=== PATIENT | male | born 1955 | race Caucasian/White ===

== ENCOUNTER 2017-04-16 05:41 | Inpatient (IN) | payer OTHER ==
[2017-04-15 09:55] VITALS: Ht 175.3 cm; Wt 96.0 kg
[2017-04-16] VITALS (24 sets, daily range): BP systolic 90–136; BP diastolic 61–90; PULSE 60–78; RESP 12–20
[~2017-04-16] VITALS: Ht 175.3 cm; Wt 96.0 kg
[2017-04-16] MEDS ORDERED: VANCOMYCIN 1 GM in NS 250 ML IVPB ONE (06:21)
[2017-04-16] MEDS ORDERED: LACTATED RINGER'S 1,000 ML IV* SCH ×2 (06:21)
--- NOTE | 2017-04-16 06:41 | HPN ---
Date/Time of Note Date/Time of Note DATE: 04/16/17 TIME: 06:41 Interval H&P Admission Note Pt. seen H&P reviewed: No system changes SHER JUSTICE MD Apr 16, 2017 06:41
[2017-04-16] MEDS ORDERED: FENTAnyl 50 MCG/ML VIAL ONE (06:43)
[2017-04-16] MEDS ORDERED: ONDANSETRON 4 MG INJ ONE (06:43)
[2017-04-16] MEDS ORDERED: SUCCINYLCHOLINE CHLORIDE 100 MG/5 ML SYG IV ONE (06:43)
[2017-04-16] MEDS ORDERED: ROCURONIUM 50 MG INJ ONE (06:43)
[2017-04-16] MEDS ORDERED: PROPOFOL 20 ML ONE (06:43)
[2017-04-16] MEDS ORDERED: GELATIN SIZE 100 SPONGE ONE (06:44)
[2017-04-16] MEDS ORDERED: BUPIVACAINE 0.25% (MPF) 30 ML INJ ONE (06:45)
[2017-04-16] MEDS ORDERED: THROMBIN 5000 UNIT VIAL ONE (06:45)
[2017-04-16] MEDS ORDERED: BENA20TA48 PO (06:53)
[2017-04-16] MEDS ORDERED: CRES10 PO (06:58)
[2017-04-16] MEDS ORDERED: LEVO125T75 PO (06:58)
[2017-04-16] MEDS ORDERED: IBUP-1542 PO (06:58)
[2017-04-16] MEDS ORDERED: LABETALOL HCL 20MG INJ IV PRN (07:00)
[2017-04-16] MEDS ORDERED: ONDANSETRON 4 MG INJ IV PRN ×2 (07:00→12:00)
[2017-04-16] MEDS ORDERED: MEPERIDINE 25 MG INJ IV PRN (07:00)
[2017-04-16] MEDS ORDERED: HYDROmorphONE (0.2 MG/ML) 10ML SYG IV PRN ×2 (07:00)
[2017-04-16] MEDS ORDERED: FENTAnyl 50 MCG/ML VIAL IV PRN ×2 (07:00)
[2017-04-16] MEDS ORDERED: hydrALAzine 20 MG INJ IV PRN (07:00)
[2017-04-16] MEDS ORDERED: MINERAL OIL LIGHT 10 ML VIAL ONE (08:23)
[2017-04-16] MEDS ORDERED: POLYMYXIN/BACITRACIN 1L IRRIG ONE (08:23)
--- NOTE | 2017-04-16 09:18 | RADRPT ---
PROCEDURE: XR Lumbar Spine one view. CLINICAL INDICATION: Low back pain. Intraoperative. TECHNIQUE: Prone portable cross-table lateral. COMPARISON: No prior studies are available for comparison. FINDINGS: There is transitional anatomy. For the purposes of this report, the last apparent true disc level is considered to be L5-S1. Based on this, the posterior needle markers are present at L2-3 and L4-5. IMPRESSION: 1. Intraoperative imaging as described above. RPTAT: QQ .Calin Jones MD, Date Time Electronically viewed and signed by .Calin Jones MD, on 04/16/2017 09:18 .R/
--- NOTE | 2017-04-16 09:19 | RADRPT ---
PROCEDURE: XR Lumbar Spine one view. CLINICAL INDICATION: Low back pain. Intraoperative. TECHNIQUE: Prone portable cross-table lateral. COMPARISON: Prior study done earlier the same day. FINDINGS: For the purposes of this report, the last apparent true disc level is considered to be L5-S1. Based on this, the posterior posterior surgical instruments are present overlying the L3, L4, and L5 spin ous processes. IMPRESSION: 1. Intraoperative imaging as described above. Call report: A call report of the findings was made to Dr. Hess on 04/16/2017 at 0805 hours. RPTAT: QQ .Calin Jones MD, MD Date Time Electronically viewed and signed by .Calin Jones MD, MD on 04/16/2017 09:19 .R/
[2017-04-16] MEDS: HYDROmorphONE (0.2 MG/ML) 10ML SYG IV PRN ×2 (11:36→11:46)
--- NOTE | 2017-04-16 11:42 | SIPON ---
Date/Time of Note Date/Time of Note DATE: 04/16/17 TIME: 11:40 Operative Report Preoperative Diagnosis Lumbar spinal stenosis at L2-L3-L4 and L5 Postoperative Diagnosis Same Operation/Procedure Performed Central decompressive laminectomy at L2-L3-L4 and L5 Medial facetectomy and foraminotomy L2-3 L3-4 L4-5 and L5-S1 bilaterally Cosmetic wound closure (14 cm) Lateral localizing lumbar radiographs (2) Intraoperative nerve monitoring (3 hours) Surgeon see signature line assisted living associate Nia CROWDERA Anesthesia: general Estimated blood loss: 250 - 300 ml's Transfusion Required none Specimen Spinous process of L2-L3-L4 and L5 Grafts/Implants none Complications none SHER JUSTICE MD Apr 16, 2017 11:41
[2017-04-16] MEDS ORDERED: HYDROmorphONE 0.2 MG/ML PCA ONE (11:44)
[2017-04-16] MEDS: HYDROmorphONE 0.2 MG/ML PCA IV SCH (11:59)
[2017-04-16] MEDS ORDERED: NACL 0.9% 3 ML SYG IV SCH (12:00)
[2017-04-16] MEDS ORDERED: DIPHENHYDRAMINE 50 MG CAP PO PRN (12:00)
[2017-04-16] MEDS ORDERED: TRIMETHOBENZAMIDE 100 MG/ML VIAL IM PRN (12:00)
[2017-04-16] MEDS ORDERED: AL HYDROX/MG HYDROX/SIMETH 30 ML CUP PO PRN (12:00)
[2017-04-16] MEDS ORDERED: NALOXONE (0.4 MG/ML) INJ IV PRN (12:00)
[2017-04-16] MEDS ORDERED: DIAZEPAM 5 MG/ML SYG IM PRN (12:00)
[2017-04-16] MEDS ORDERED: ACETAMINOPHEN 325 MG TAB PO PRN (12:00)
[2017-04-16] MEDS ORDERED: PROCHLORPERAZINE 10 MG TAB PO PRN (12:00)
[2017-04-16] MEDS ORDERED: BETHANECHOL 25 MG TAB PO PRN (12:00)
[2017-04-16] MEDS ORDERED: VANCOMYCIN 1 GM (PMX) 250 ML IVPB SCH (12:00)
[2017-04-16] MEDS ORDERED: ZOLPIDEM 5 MG TAB PO PRN (12:00)
[2017-04-16] MEDS ORDERED: DIAZEPAM 5 MG TAB PO PRN (12:00)
[2017-04-16] MEDS: DEXTROSE 5%-0.45% NACL 1,000 ML IV SCH (12:53)
--- NOTE | 2017-04-16 13:27 | OPR ---
DATE OF OPERATION: 04/16/2017 PREOPERATIVE DIAGNOSIS: Multilevel spinal stenosis from L2-L5. POSTOPERATIVE DIAGNOSIS: Multilevel spinal stenosis from L2-L5. OPERATION PERFORMED: 1. Central decompressive laminectomy at L2. 2. Central decompressive laminectomy at L3. 3. Central decompressive laminectomy at L4. 4. Central decompressive laminectomy at L5. 5. Medial facetectomy and foraminotomy L2-L3, L3-L4, L4-L5 and L5-S1 bilaterally. 6. Baxano transforaminal root decompression L5 on the right. 7. Cosmetic wound closure (14 cm). 8. Lateral localized lumbar radiographs (2). 9. Intraoperative nerve monitoring (3 hours). SURGEON: Gerson Hess MD IMAGING TECHNICIAN: SOLEDAD Cooper ANESTHESIA: General endotracheal. ANESTHESIOLOGIST: Jonny Kathleen MD ESTIMATED BLOOD LOSS: 300 mL, none replaced. DRAINS: Two medium Hemovac drains employed. COMPLICATIONS: None. PERTINENT HISTORY AND PHYSICAL: This is a 61-year-old male who has had persistent back and lower extremity complaints bilaterally following an industrial injury of 10/14/2016. He has had extensive care since that time, has remained symptomatic. He has undergone a number of diagnostic studies including an MRI of the lumbar spine, which demonstrated multilevel severe spinal stenosis from L2-L5. Treatment options were discussed with the patient, he elected to proceed with surgery. OPERATIVE FINDINGS AT SURGERY: A multilevel severe spinal stenosis from L2-L5 was confirmed. The baseline intraoperative nerve monitoring revealed a decrease in the left L2 potential of 30%, the left L3 potential of 40%, the right L3 potential of 30%, the left L4 potential of 50%, the L5 potentials bilaterally of 40%. These all returned to normal at the completion of surgery. OPERATIVE PROCEDURE: With the patient in supine position after satisfactory induction of general endotracheal anesthesia by Dr. Kathleen, the patient was turned to the prone kneeling position onto the [place] frame. All pressure points were carefully padded. The back was prepped and draped in the usual sterile fashion. Athrombic pumps were applied to the legs below the knees to prevent venous stasis during and after the procedure. An indwelling Rudolph catheter was also placed preoperatively to facilitate bladder drainage during and after the procedure. Two spinal needles were placed next to what was felt to be the L2 and L5 spinous processes and lateral roentgenogram was taken which confirmed anatomic localization. A 14 cm incision then carried out midline from L2 to the sacrum through skin and subcutaneous tissue to deep fascia after the skin was infiltrated with 0.25% Marcaine without epinephrine for postoperative analgesia. Superficial retractors were placed and hemostasis secured with electrocautery. Throughout the procedure, copious amounts of antibacterial irrigating solution were used to periodically irrigate the wound. The fascia was incised in midline with a hot knife and a bilateral subperiosteal dissection carried out from L2 to the sacrum. Deep retractors were placed and deep hemostasis secured with electrocautery. A second intraoperative radiograph was taken with Armani clamps placed on what was felt to be the spinous processes of L3, L4, and L5. This was confirmed with second x -ray. A central decompressive laminectomy was then carried out at L5, L4, L3 and L2 using a Amber right-angle bone rongeur, Leksell rongeur, Kerrison punches and curettes. Ligamentum flavum was incised with sharp dissection. The operating microscope was then moved into place. A medial facetectomy and foraminotomy at L2-3, L3-4, L4-5, and L5-S1 was then carried out using a small hand osteotome, mallet, Kerrison punches and curettes. At this point, there was still some marked foraminal stenosis at L5 on the right, and the Baxano instrumentation was brought onto the field. The Ipsi probe was placed into the L5 foramen on the right, and the guidewire passed in the usual fashion. The neuro probe was then used to isolate the exiting L5 nerve root. With this having been assured, a 7.5 mm Baxano rasp was inserted into the foramen and multiple reciprocations carried out to enlarge the posterior aspect of the foramen. The instrumentation was withdrawn. The foramen was flooded with 20 mL of irrigating solution and hemostasis was secured with bipolar electrocautery on low setting. The anesthesiologist then asked to perform a Valsalva maneuver at 40 mmHg and no spinal fluid leakage was noted. The wound was then closed in layers over 2 medium Hemovac drains, one below the fascia and one above the fascia using #1 Vicryl Stratafix sutures on the deep paralumbar musculature and deep fascia of back, 2-0 Stratafix sutures in subcutaneous tissue, and a 4-0 Vicryl subcuticular cosmetic closing suture on the skin. Dermabond and sterile compressive dressings were applied. Patient having tolerated procedure well and was then returned to supine position onto his bed and extubated by Dr. Kathleen. He was transported to the recovery room in satisfactory condition. At the conclusion of procedure, sponge, instrument, and needle counts were all correct. NEED FOR WELDER FITTER ARC: During this spinal surgical procedure, my assistant professor of philosophy was used to retract and protect the spinal nerves and dural sac. My assistant professor of philosophy also employed the suction catheters to evacuate blood from the surgical field to improve visualization of the neural structures. The assistant professor of philosophy was medically necessary to facilitate the completion of the surgery in a safe and expeditious manner. State of [place] regulations, as well as hospital bylaws, preclude the use of non-licensed health care personnel such as operating room technicians, to perform these functions. Throughout the procedure, neural monitoring was carried out by [employer] including EMG, SSEP and MEP monitoring of the L2, L3 , L4, L5, and S1 nerve roots bilaterally along with spinal cord potentials. These were interpreted by a neurologist employed by [employer]. Dictated By: GERSON CARRILLO/TEX Conf#: [id number] DID#: [id number] CC: MARIA T CHERRY DO;*EndCC* MTDD
[2017-04-16] MEDS: CEPASTAT LOZENGE MT PRN ×2 (13:42→22:04)
[2017-04-16] MEDS: VANCOMYCIN 1 GM (PMX) 250 ML IVPB SCH (17:16)
--- NOTE | 2017-04-16 17:26 | PN ---
MARIA T CHERRY MD 04/16/17 1726: Date/Time of Note Date/Time of Note DATE: 04/16/17 TIME: 17:19 Assessment/Plan VTE Prophylaxis VTE Prophylaxis Intervention: anti-embolic stocking Lines/Catheters [facility] Peripheral IV Urinary Cath still in place: Yes Assessment/Plan Assessment/Plan Status post op lumbar discectomy. Continue post op care. Subjective 24 Hr Interval Summary Free Text/Dictation The patient is status post op day 1 lumbar surgery. He is alert and well oriented. He has no complaint other than the expected posop incisional discomfort. Constitutional: improved, no complaints Eyes: no complaints ENT: no complaints Respiratory: no complaints Cardiovascular: no complaints Gastrointestinal: no complaints Genitourinary: no complaints Musculoskeletal: back pain Skin: no complaints Neurologic: no complaints Additional Comments Post op day 1. The patient is alert and well oriented. He has no complaints other than the expected postoperative incisional pain. Exam/Review of Systems Vital Signs Vitals Vital Signs Date Time Temp Pulse Resp B/P Pulse Ox O2 Delivery O2 Flow Rate FiO2 04/16/17 15:15 60 16 117/79 97 Nasal Cannula 2.0 04/16/17 14:00 98.7 Intake and Output 04/15/17 04/15/17 04/16/17 15:00 23:00 07:00 Intake Total 2000 ml Balance 2000 ml Exam Constitutional: alert, oriented, well developed Psych: no complaints Respiratory: clear to auscultation Cardiovascular: nl pulses, regular rate and rhythm Gastrointestinal: nl liver, spleen, non-tender, soft Musculoskeletal: nl extremities to inspection Medications Medications Current Medications Lactated Ringer's 1,000 ml @ 20 mls/hr Q24H IV* Last administered on 06:32; Admin Dose 20 MLS/HR; Start 04/16/17 at 06:21; Stop 04/18/17 at 08: 20 Lactated Ringer's 1,000 ml @ 20 mls/hr Q24H IV* ; Start 04/16/17 at 06:21; Stop 04/18/17 at 08:20 Dextrose/Sodium Chloride (D5-1/2ns) 1,000 ml @ 100 mls/hr Q10H IV Last administered on 04/16/17 12:53; Admin Dose 100 MLS/HR; Start 04/16/17 at 11:34 Acetaminophen/ Hydrocodone Bitart ([place] (5/325)) 1 tab Q4H PRN PO PAIN LEVEL 1 -5; Start 04/16/17 at 12:00 Acetaminophen/ Hydrocodone Bitart ([place] (5/325)) 2 tab Q4H PRN PO PAIN LEVEL 6 -10; Start 04/16/17 at 12:00 Zolpidem Tartrate (Ambien) 5 mg HS PRN PO INSOMNIA; Start 04/16/17 at 12:00 Prochlorperazine (Compazine) 10 mg Q4H PRN PO NAUSEA AND/OR VOMITING; Start at 12:00 Trimethobenzamide HCl (Tigan) 200 mg Q4H PRN IM NAUSEA AND/OR VOMITING; Start 04/16/17 at 12:00 Ondansetron HCl (Zofran Inj) 4 mg Q6H PRN IV NAUSEA AND/OR VOMITING; Start 04/16/17 at 12:00 Al Hydrox/Mg Hydrox/Simethicone (Mag-Al Plus) 15 ml Q4H PRN PO CONSTIPATION; Start 04/16/17 at 12:00 Docusate Sodium (Colace) 100 mg BID PO ; Start 04/17/17 at 09:00 Acetaminophen (Tylenol Tab) 650 mg Q4H PRN PO TEMP GREATER THAN 101F OR SANDHU; Start 04/16/17 at 12:00 Ascorbic Acid (Vitamin C) 1,000 mg BID PO ; Start 04/17/17 at 09:00 Ferrous Sulfate (Ferrous Sulfate (Ec)) 325 mg TID PO ; Start 04/17/17 at 09:00 Ranitidine HCl (Zantac) 150 mg BID PO ; Start 04/16/17 at 21:00 Diazepam (Valium) 5 mg Q4H PRN PO MUSCLE SPASMS Last administered on 04/16/17t 15:16; Admin Dose 5 MG; Start 04/16/17 at 12:00 Diazepam (Valium) 5 mg Q4H PRN IM MUSCLE SPASMS; Start 04/16/17 at 12:00 Phenol (Cepastat Lozenge) 1 lozenge PRN PRN MT SORE THROAT Last administered on 04/16/17 13:42; Admin Dose 1 LOZENGE; Start 04/16/17 at 12:00 Bethanechol Chloride (Urecholine) 25 mg PRN PRN PO UNABLE TO VOID; Start at 12:00 Diphenhydramine HCl (Benadryl) 50 mg Q6H PRN PO PRURITUS; Start 04/16/17 at 12: 00 Hydromorphone HCl (Dilaudid PATTERN STAMPER) Q4PCA IV Last administered on 04/16/17 11:59 ; Admin Dose 6 MG; Start 04/16/17 at 12:00 Naloxone HCl 0.2 mg 0.2 mg Q2M PRN IV RR 8 BREATHS/MIN OR LESS; Start 04/16/17 at 12:00 Vancomycin HCl (Vancocin) 250 ml @ 125 mls/hr Q12H IVPB Last administered on 04/16/17 17:16; Admin Dose 125 MLS/HR; Start 04/16/17 at 18:00; Stop 04/17/17 at 07:59 YUE HOLLINS 04/17/17 1416: Assessment/Plan VTE Prophylaxis VTE Prophylaxis Intervention: ANTONI's MARIA T CHERRY MD Apr 16, 2017 17:26 YUE HOLLINS Apr 17, 2017 14:16
[2017-04-16] MEDS: RANITIDINE 150 MG TAB PO SCH (22:04)
[2017-04-17] MEDS: DEXTROSE 5%-0.45% NACL 1,000 ML IV SCH ×3 (00:04→17:34)
[2017-04-17] MEDS ORDERED: VITAMIN A & D 5 GM OINT PACKET TOP ONE (02:37)
[2017-04-17] MEDS: HYDROmorphONE 0.2 MG/ML PCA IV SCH (02:57)
[2017-04-17 04:03] VITALS: BP 119/62; PULSE 74; RESP 18
[2017-04-17] MEDS: CEPASTAT LOZENGE MT PRN (05:40)
[2017-04-17] MEDS: VANCOMYCIN 1 GM (PMX) 250 ML IVPB SCH (05:40)
[2017-04-17 05:51] LABS: HEMATOCRIT 34.2 % (42.0-52.0); HEMOGLOBIN 11.7 g/dl (14.0-18.0)
[2017-04-17 06:46] LABS: CALCIUM 8.7 mg/dl (8.4-10.2); CREATININE 0.92 mg/dl (0.61-1.24); POTASSIUM 3.9 mmol/L (3.5-5.1)
--- NOTE | 2017-04-17 07:05 | PN ---
Date/Time of Note Date/Time of Note DATE: 04/17/17 TIME: 07:04 Assessment/Plan Lines/Catheters IV Catheter Type (from Nrsg): Peripheral IV Rudolph in Place (from Nrsg): Yes Subjective 24 Hr Interval Summary The patient is postop day #1 following a multilevel decompressive laminectomy. He is resting comfortably in bed. His Hemovac drainage was minimal (20 cc) and was discontinued. Neurovascular structures are intact distally. His wound is clean and dry and was redressed. A.m. lab work is unremarkable. He will be mobilized as tolerated by physical therapy, and may go home later this afternoon if cleared by PT. he was given strict discharge precautions and instructions as well as follow-up arrangements. Exam/Review of Systems Vital Signs Vitals Vital Signs Date Time Temp Pulse Resp B/P Pulse Ox O2 Delivery O2 Flow Rate FiO2 04/17/17 05:00 17 04/17/17 04:03 97.8 74 119/62 98 Nasal Cannula 2.0 Intake and Output 04/16/17 04/16/17 04/17/17 15:00 23:00 07:00 Intake Total 1250 ml 1820 ml Output Total 590 ml 330 ml 2120 ml Balance -590 ml 920 ml -300 ml Results Result Diagram: 04/17/17 0502 04/17/17 0502 SHER JUSTICE MD Apr 17, 2017 07:05
[2017-04-17] MEDS ORDERED: BETHANECHOL 25 MG TAB PO PRN (08:00)
[2017-04-17 08:10] VITALS: BP 127/78; PULSE 90; RESP 18
[2017-04-17] MEDS: RANITIDINE 150 MG TAB PO SCH ×2 (08:29→20:29)
[2017-04-17] MEDS: DOCUSATE SODIUM 100 MG CAP PO SCH ×2 (08:29→20:28)
[2017-04-17] MEDS: ASCORBIC ACID 500 MG TAB PO SCH ×2 (08:29→20:29)
[2017-04-17] MEDS: FERROUS SULFATE (EC) 325 MG TAB PO SCH ×3 (08:29→20:28)
[2017-04-17] MEDS: HYDROCODONE/APAP (5/325) TAB PO PRN ×2 (10:05→18:36)
[2017-04-17] MEDS ORDERED: NA PHOSPHATE/BIPHOS 133 ML ENEMA PR ONE (13:30)
[2017-04-17] MEDS ORDERED: BISACODYL 10 MG SUPP PR ONE (13:30)
--- NOTE | 2017-04-17 14:02 | PN ---
Date/Time of Note Date/Time of Note DATE: 04/17/17 TIME: 13:52 Assessment/Plan VTE Prophylaxis VTE Prophylaxis Intervention: ambulation, SCD's Lines/Catheters IV Catheter Type (from Nrs): Peripheral IV Urinary Cath still in place: No Assessment/Plan Chief Complaint/Hosp Course Postop day #1 following a multilevel decompressive laminectomy. Problems: Assessment/Plan Hemovac draining. Ambulation with PT. Constipation - Dulcolax sup, if not better fleet enema. PO pain control as needed. Discharge per surgery. Subjective 24 Hr Interval Summary Free Text/Dictation Mr. Thibodeaux is a pleasant 61 y/o male, postop day #1 following a multi-level decompressive laminectomy. Medicine was asked to consult during his post op stay. He is uncomfortable in bed due to nausea, abdominal discomfort and constipation. He has not had a BM yet. Hemovac is in place and draining freely. Surgical site dressed and no active bleeding is noted. The patient underwent session with PT this morning and was able to ambulate with minimal assistance. Gastrointestinal: constipation, nausea, No blood, No vomiting Musculoskeletal: back pain Exam/Review of Systems Vital Signs Vitals Vital Signs Date Time Temp Pulse Resp B/P Pulse Ox O2 Delivery O2 Flow Rate FiO2 04/17/17 10:43 Nasal Cannula 2.0 04/17/17 08:10 98.3 90 18 127/78 94 Intake and Output 04/16/17 04/16/17 04/17/17 15:00 23:00 07:00 Intake Total 1250 ml 1820 ml Output Total 590 ml 330 ml 2120 ml Balance -590 ml 920 ml -300 ml Exam Constitutional: alert, oriented, well developed Psych: nl mood/affect, no complaints Head: atraumatic, normocephalic Eyes: EOMI, PERRL, nl conjunctiva, nl lids, nl sclera ENMT: nl external ears & nose, nl lips & teeth, nl nasal mucosa & septum Neck: non-tender, supple Respiratory: clear to auscultation, normal air movement Gastrointestinal: bowel sounds, distended, nl liver, spleen, non-tender, tender , No rebound or guarding Musculoskeletal: nl extremities to inspection, nl gait and stance, spine non- tender, No joint tenderness, No muscle weakness Extremities: normal pulses Neurological: CARDIO TECH II-XII intact, nl mental status, nl speech, nl strength Skin: nl turgor, No rash or lesions Lymph: nl lymph nodes Results Result Diagram: 04/17/17 0502 04/17/17 0502 Results 24 hrs Laboratory Tests Test 04/17/17 05:02 Hemoglobin 11.7 L Hematocrit 34.2 L Sodium Level 140 Potassium Level 3.9 Chloride Level 105 Carbon Dioxide Level 28 Anion Gap 11 Blood Urea Nitrogen 6 L Creatinine 0.92 Glucose Level 105 Calcium Level 8.7 Medications Medications Current Medications Lactated Ringer's 1,000 ml @ 20 mls/hr Q24H IV* Last administered on 06:32; Admin Dose 20 MLS/HR; Start 04/16/17 at 06:21; Stop 04/18/17 at 08: 20 Lactated Ringer's 1,000 ml @ 20 mls/hr Q24H IV* ; Start 04/16/17 at 06:21; Stop 04/18/17 at 08:20 Dextrose/Sodium Chloride (D5-1/2ns) 1,000 ml @ 100 mls/hr Q10H IV Last administered on 04/17/17 00:04; Admin Dose 100 MLS/HR; Start 04/16/17 at 11:34 Acetaminophen/ Hydrocodone Bitart ([place] (5/325)) 1 tab Q4H PRN PO PAIN LEVEL 1 -5; Start 04/16/17 at 12:00 Acetaminophen/ Hydrocodone Bitart ([place] (5/325)) 2 tab Q4H PRN PO PAIN LEVEL 6 -10 Last administered on 04/17/17 10:05; Admin Dose 2 TAB; Start 04/16/17 at 12 :00 Zolpidem Tartrate (Ambien) 5 mg HS PRN PO INSOMNIA; Start 04/16/17 at 12:00 Prochlorperazine (Compazine) 10 mg Q4H PRN PO NAUSEA AND/OR VOMITING; Start at 12:00 Trimethobenzamide HCl (Tigan) 200 mg Q4H PRN IM NAUSEA AND/OR VOMITING; Start 04/16/17 at 12:00 Ondansetron HCl (Zofran Inj) 4 mg Q6H PRN IV NAUSEA AND/OR VOMITING; Start 04/16/17 at 12:00 Al Hydrox/Mg Hydrox/Simethicone (Mag-Al Plus) 15 ml Q4H PRN PO CONSTIPATION Last administered on 04/17/17 10:42; Admin Dose 15 ML; Start 04/16/17 at 12:00 Docusate Sodium (Colace) 100 mg BID PO Last administered on 04/17/17 08:29; Admin Dose 100 MG; Start 04/17/17 at 09:00 Acetaminophen (Tylenol Tab) 650 mg Q4H PRN PO TEMP GREATER THAN 101F OR SANDHU; Start 04/16/17 at 12:00 Ascorbic Acid (Vitamin C) 1,000 mg BID PO Last administered on 04/17/17 08:29 ; Admin Dose 1,000 MG; Start 04/17/17 at 09:00 Ferrous Sulfate (Ferrous Sulfate (Ec)) 325 mg TID PO Last administered on 13:15; Admin Dose 325 MG; Start 04/17/17 at 09:00 Ranitidine HCl (Zantac) 150 mg BID PO Last administered on 04/17/17 08:29; Admin Dose 150 MG; Start 04/16/17 at 21:00 Diazepam (Valium) 5 mg Q4H PRN PO MUSCLE SPASMS Last administered on 04/16/17 15:16; Admin Dose 5 MG; Start 04/16/17 at 12:00 Diazepam (Valium) 5 mg Q4H PRN IM MUSCLE SPASMS; Start 04/16/17 at 12:00 Phenol (Cepastat Lozenge) 1 lozenge PRN PRN MT SORE THROAT Last administered on 04/17/17 05:40; Admin Dose 1 LOZENGE; Start 04/16/17 at 12:00 Bethanechol Chloride (Urecholine) 25 mg PRN PRN PO UNABLE TO VOID Last administered on 04/17/17 08:32; Admin Dose 25 MG; Start 04/16/17 at 12:00 Diphenhydramine HCl (Benadryl) 50 mg Q6H PRN PO PRURITUS; Start 04/16/17 at 12: 00 Hydromorphone HCl (Dilaudid RE[employer]ENISHMENT ASSOCIATE) Q4PCA IV Last administered on 04/17/17 02:57 ; Admin Dose 6 MG; Start 04/16/17 at 12:00 Naloxone HCl (Narcan) 0.2 mg Q2M PRN IV RR 8 BREATHS/MIN OR LESS; Start at 12:00 Bethanechol Chloride (Urecholine) 25 mg PRN PRN PO UNABLE TO VOID; Start at 08:00 YUE HOLLINS Apr 17, 2017 14:02
[2017-04-17 19:24] VITALS: BP 132/76; RESP 18
[2017-04-18 02:00] VITALS: BP 128/69; RESP 18
[2017-04-18] MEDS: DEXTROSE 5%-0.45% NACL 1,000 ML IV SCH ×2 (03:34→13:34)
[2017-04-18 06:23] VITALS: PULSE 77
[2017-04-18 07:00] VITALS: BP 137/76; RESP 18
--- NOTE | 2017-04-18 07:03 | PN ---
Date/Time of Note Date/Time of Note DATE: 04/18/17 TIME: 07:01 Assessment/Plan Lines/Catheters IV Catheter Type (from Nrs): Saline Lock Rudolph in Place (from Nrsg): No Subjective 24 Hr Interval Summary Patient is postop day #2 following a multilevel decompressive laminectomy. He is resting comfortably. He had some abdominal distention last night that was treated with Mylicon DS. He has not yet been cleared by physical therapy for discharge. I anticipate he will be cleared later this morning by physical therapy and can be discharged home thereafter. Strict discharge precautions and instructions as well as follow-up arrangements were again discussed. Neurovascular structures were intact distally. Exam/Review of Systems Vital Signs Vitals Vital Signs Date Time Temp Pulse Resp B/P Pulse Ox O2 Delivery O2 Flow Rate FiO2 04/18/17 06:23 98.7 77 93 Room Air 04/18/17 02:00 18 128/69 04/17/17 22:00 2.0 Intake and Output 04/17/17 04/17/17 04/18/17 15:00 23:00 07:00 Intake Total 250 ml 500 ml 550 ml Output Total 600 ml 450 ml Balance 250 ml -100 ml 100 ml Results Result Diagram: 04/17/17 0502 04/17/17 0502 SHER JUSTICE MD Apr 18, 2017 07:03
[2017-04-18] MEDS: HYDROCODONE/APAP (5/325) TAB PO PRN ×2 (09:47→15:38)
[2017-04-18] MEDS: RANITIDINE 150 MG TAB PO SCH (10:36)
[2017-04-18] MEDS: FERROUS SULFATE (EC) 325 MG TAB PO SCH ×2 (10:36→15:37)
[2017-04-18] MEDS: ASCORBIC ACID 500 MG TAB PO SCH (10:36)
[2017-04-18] MEDS: DOCUSATE SODIUM 100 MG CAP PO SCH (10:39)
[2017-04-18] MEDS ORDERED: INSULIN ASPART [NOVOLOG] 3 ML PEN SC ONE (12:30)
== END 2017-04-18 17:05 | disposition home or self-care (01) | DRG 517 ==
LOC: REC 05:41 → MS1 12:31
PROVIDERS: ADMIT Orthopaedic Surgery; ATTEND Orthopaedic Surgery
PROC: 01NB0ZZ Release Lumbar Nerve, Open Approach (ICD-10-PCS; principal; 2017-04-16 07:00)
DX: M48.061 Spinal stenosis, lumbar region without neurogenic claudication (principal); I10 Essential (primary) hypertension; E03.9 Hypothyroidism, unspecified; K59.00 Constipation, unspecified; E78.2 Mixed hyperlipidemia; Z88.0 Allergy status to penicillin; Z96.652 Presence of left artificial knee joint
CPT/HCPCS: 72020; 80048; 85014; 85018; 86850; 86900; 86901; 86920; 87086; 97116; 97162; 97530; J1170; J1815; J2175; J2405; J3010; J3370; J7042; J7120